=== PATIENT | female | born 1965 | race Caucasian/White ===

== ENCOUNTER 2024-05-27 19:40 | Emergency (ER) | payer MEDICARE, BC, SELFPAY ==
[2024-05-27 19:40] VITALS: BMI 36.5
[2024-05-27 19:44] VITALS: BP 189/113
[2024-05-27 20:14] LABS: % Basophils 0.5 % (0-2); % Eosinophils 3.6 % (0-6); % Immature Granulocytes 0.2 % (0-0.5); % Lymphocytes 29.7 % (20.5-51.1); % Monocytes 11.4 % (1.7-9.3); % Neutrophils 54.6 % (42.2-75.2); Absolute Eosinophils 0.2 10^3/uL (0-0.7); Absolute Lymphocytes 1.7 10^3/uL (1.2-3.4); Absolute Monocytes 0.6 10^3/uL (0.1-0.6); Absolute Neutrophils 3.1 10^3/uL (1.4-6.5); Hematocrit 39.3 % (37.0-47.0); Hemoglobin 13.3 g/dL (12.0-16.0); Mean Corp Hgb Conc. 33.8 g/dL (33.0-37.0); Mean Corpuscular Hgb 28.9 pg (27.0-31.0); Mean Corpuscular Volume 85.4 fL (81.0-99.0); Mean Platelet Volume 9.7 fL (7.4-10.4); Nucleated Red Blood Cells % 0 %; Platelet Count 224 10^3/uL (130-400); Red Cell Dist. Width 12.9 % (11.5-14.5); White Blood Cell Count 5.6 10^3/uL (4.8-10.8)
[2024-05-27 20:18] LABS: APTT 30.2 Sec (23.4-35.0)
[2024-05-27 20:24] LABS: ALT (SGPT) 49 U/L (0-35); AST (SGOT) 42 U/L (14-36); Albumin 4.8 g/dl (3.5-5.0); Alkaline Phosphatase 115 U/L (38-126); Blood Urea Nitrogen 9 mg/dl (7-17); Calcium 9.3 mg/dl (8.4-10.2); Carbon Dioxide 25 mmol/L (22-30); Chloride 105 mmol/L (98-107); Glucose 111 mg/dl (70-99); Potassium 4.1 mmol/L (3.5-5.1); Sodium 139 mmol/L (135-145); Total Bilirubin 0.5 mg/dl (0.2-1.3); Total Protein 7.2 g/dl (6.3-8.2); eGFR > 60.00
[2024-05-27 20:25] LABS: Lipase 140 U/L (23-300)
[2024-05-27 22:15] VITALS: BP 159/112
[2024-05-27 22:42] VITALS: BP 164/92
[2024-05-27 23:06] VITALS: BP 149/88
--- NOTE | 2024-05-27 23:47 | ED.GENMED ---
History of Present Illness
General
Chief Complaint: Breathing Problem
Source: patient
Exam Limitations: none
Time Seen by Provider: 05/27/24 23:04
Nursing documentation reviewed up to this point in time: agreed with
History of Present Illness
History of Present Illness:
59-year-old female past medical history of PE, stroke, hypertension hyperlipidemia presenting to the emergency department today after an episode where she had nausea vomiting yesterday felt like she aspirated and has had ongoing discomfort to the
right lung as well as some mild shortness of breath. Also has been taking for PEs for many years. Denies specific chest pain no ongoing vomiting. No fevers today.
Past History
Past History
ED Past Medical History: GERD, HTN, Hypercholesterolemia, Other (Pulmonary embolus, chronic back pain) and Other (Intracranial hemorrhage)
ED Past Surgical History: Orthopedic (R knee replacement) and Other (IVC filter); Negative Bowel resection, Brain, Cardiac or Cholecystectomy
Patient has exhibited threatening behavior?: No
Social History
Tobacco: Non-smoker
Alcohol: None
Drug: None
Personal: Partner
Living: with family
Employment: Employed
Family History
Family History: CAD (Father with AL at age 48 )
Review of Systems
Review of Systems
Allergies reviewed?: Yes
All Other Systems: ROS reviewed and negative except as documented in HPI and ROS
Phy Exam
Physical Exam
Physical Exam:
GENERAL: Alert , in no apparent distress
EYE: pupils equal and reactive
NECK: Supple, no significant adenopathy.
ENT: o/p clr, mmm.
CARDIAC: Regular rate and rhythm .
LUNGS: Very mild slight rhonchi with forced exhalation to the right lower lobe of lungs otherwise clear lungs good air movement
ABDOMEN: Soft, without focal tenderness, no r/g, no cvat
NEUROLOGICAL: Alert and oriented, no focal neuro deficits
SKIN: Warm and dry, skin intact.
MUSCULOSKELETAL: No edema, well perfused.
PSYCH: Normal and appropriate interaction.
Scores
Heart Failure Risk
Heart Failure Risk Score: Not Applicable
Course
Orders/Labs/Results
Orders:
Orders
05/27/24 19:48
CR Chest - 2 Views Urgent
Comment:
Reason For Exam: aspiration
05/27/24 19:54
Complete Blood Count/With Diff Urgent
Comprehensive Metabolic Panel Urgent
Lipase Urgent
05/27/24 19:57
PTT Urgent
05/27/24 23:47
Amoxicillin 875 mg/Clav 125 mg [Augmentin 875 mg/125 mg] 1 tablet PO NOW STA
Abnormal Lab Results
05/27/24
19:54
Monocytes % 11.4 H %
(1.7-9.3)
Glucose 111 H mg/dl
(70-99)
AST 42 H U/L
(14-36)
ALT 49 H U/L
(0-35)
05/27/24 19:54
05/27/24 19:54
Vital Signs
Initial and Last Documented VS:
Initial Vital Signs
Temp Pulse Resp BP Pulse Ox
98.2 F 91 20 189/113 98
05/27/24 19:44 05/27/24 19:44 05/27/24 19:44 05/27/24 19:44 05/27/24 19:44
Last Documented Vital Signs
Temp Pulse Resp BP Pulse Ox
98.2 F 81 12 149/88 98
05/27/24 19:44 05/27/24 23:30 05/27/24 23:30 05/27/24 23:06 05/27/24 23:30
MDM/Problems Addressed
MDM/Problems Addressed:
59-year-old female presenting with concerns of vomiting yesterday now some mild shortness of breath and funny sensation to the right back. On examination there is a small bit of rhonchi to the right lower lung region. Concern for potential very
early aspiration pneumonia though it is not very clear on chest x-ray. Plan start antibiotic otherwise patient generally well-appearing in no distress stable for outpatient follow-up return precautions given.
*Critical Care Note
Total Time (30-74mins, 75-104mins- exclusive of procedures): Not Applicable
ED Attending Note
-
Portions of this chart may have been created with voice recognition software.� Occasional wrong word or��sound alike� substitutions may have occurred due to the inherent limitations of voice recognition software.
Discharge Plan
Departure
Patient Disposition: Home (Routine Discharge)
Date of Disposition: 05/27/24
Time of Disposition: 23:49
Patient with high blood pressure during this ER visit?: No
Condition: Good
Covid-19: Not Applicable
Discharge Problem:
Aspiration pneumonia
Instructions: Shortness of Breath (Dyspnea) (DC)
Prescriptions:
New
amoxicillin-pot clavulanate 875-125 mg tablet
1 tab PO BID 7 Days Qty: 14 0RF
No Action
famotidine 40 MG tablet
40 mg PO HS
simvastatin 20 MG tablet
20 mg PO QPM
morphine 15 MG tablet extended release
15 mg PO [id number] PRN (Reason: pain mangement )
oxycodone-acetaminophen 1 EACH tablet
1 tab PO .BID@0300,1500 PRN (Reason: severe lower back pain)
Patient Comments:
12/21/19-patient lasted picked up on 12/04/19 #70
-patient required 0300 and 1500 and not to change her schedule
ramipril 5 MG capsule
5 mg PO HS
warfarin [Jantoven] 7.5 MG tablet
7.5 mg PO .[id number]
ferrous sulfate [FeroSul] 325 MG tablet
325 mg PO HS
warfarin [Jantoven] 5 MG tablet
5 mg PO .[id number]
enoxaparin 80 MG/0.8 ML syringe
80 mg SC .[id number]
Referrals:
Colin Tracey DO [Family Provider] -
Activity Restrictions/Additional Instructions:
You came to the emergency department today with concerns of possible aspiration. Please take the Augmentin twice daily for the next 7 days and follow closely with the primary care doctor. Return for any worsening, new or concerning symptoms.
Interventions
Interventions:
*Risk Screen - Suicide Last Done: 05/27/24 23:47
*General Assessment Last Done: 05/27/24 19:44
*Neglect/Abuse Screening Last Done: 05/27/24 23:47
*ED COVID-19 Vaccine History Last Done: 05/27/24 23:47
ED- Cardiac Assessment Last Done: 05/27/24 23:47
ED- Pulmonary Assessment Last Done: 05/27/24 23:47
Discharge Date and Time
Print Language: [place] CITIZEN
[2024-05-27] MEDS: AUGMENTIN 875 MG/125 MG 1 TABLET PO (23:57)
== END 2024-05-28 00:13 | disposition home or self-care (01) ==
LOC: EMR 19:40
PROVIDERS: Emergency Medicine; EMERGENCY PHYSICIAN Emergency Medicine; FAMILY PHYSICIAN Family Medicine
DX: J69.0 Pneumonitis due to inhalation of food and vomit (principal); E78.00 Pure hypercholesterolemia, unspecified; I10 Essential (primary) hypertension; Z86.73 Personal history of transient ischemic attack (TIA), and cerebral infarction without residual deficits; Z86.711 Personal history of pulmonary embolism
CPT/HCPCS: 99284; 71046; 80053; 83690; 85025; 85730

== ENCOUNTER → 2024-08-12 15:17 | Outpatient (REF) | payer MEDICARE, BC, SELFPAY | LOC: RAD 15:17 | PROVIDERS: ATTENDING PHYSICIAN Physical Medicine & Rehabilitation Pain Medicine; FAMILY PHYSICIAN Family Medicine | DX: I82.402 Acute embolism and thrombosis of unspecified deep veins of left lower extremity (principal); M79.662 Pain in left lower leg | CPT/HCPCS: 93971 ==

== ENCOUNTER 2024-08-15 05:57 | Emergency (ER) | payer MEDICARE, BC, SELFPAY ==
[2024-08-15 06:11] VITALS: BP 153/92
--- NOTE | 2024-08-15 07:15 | ED.GENMED ---
History of Present Illness
General
Chief Complaint: Swelling
Time Seen by Provider: 08/15/24 07:01
History of Present Illness
History of Present Illness:
59-year-old female with history of DVT currently on Eliquis presents for evaluation of left popliteal pain and left calf swelling for the past 3 to 4 days. She had an ultrasound 3 days ago showing no DVT and a popliteal fluid collection however she
was never given her results. Denies any chest pain or shortness of breath
Past History
Past History
ED Past Medical History: GERD, HTN, Hypercholesterolemia, Other (Pulmonary embolus, chronic back pain) and Other (Intracranial hemorrhage)
ED Past Surgical History: Orthopedic (R knee replacement) and Other (IVC filter); Negative Bowel resection, Brain, Cardiac or Cholecystectomy
Patient has exhibited threatening behavior?: No
Social History
Tobacco: Non-smoker
Alcohol: None
Drug: None
Personal: Partner
Living: with family
Employment: Employed
Family History
Family History: CAD (Father with [place] at age 48 )
Review of Systems
Review of Systems
Allergies reviewed?: Yes
All Other Systems: ROS reviewed and negative except as documented in HPI and ROS
Phy Exam
Physical Exam
Physical Exam:
GEN: Well appearing, NAD, WDWN
HEENT: Oral mucosa moist, no scleral icterus
Cardiac: Regular rate
Lung: No respiratory distress, no tachypnea
MSK: Diffuse calf swelling, calf compartments are soft x 4 on the left, mild ecchymosis to the inferior medial calf/foot minimal pain with passive stretch of the calf, left knee range of motion is normal
Skin: Good color, no pallor or jaundice, no rashes
Neuro: AO x3, moves all extremities freely
Psych: Calm, cooperative
Scores
Heart Failure Risk
Heart Failure Risk Score: Not Applicable
Course
Vital Signs
Initial and Last Documented VS:
Initial Vital Signs
Temp Pulse Resp BP Pulse Ox
98.2 F 82 16 153/92 97
08/15/24 06:11 08/15/24 06:11 08/15/24 06:11 08/15/24 06:11 08/15/24 06:11
Last Documented Vital Signs
Temp Pulse Resp BP Pulse Ox
98.2 F 82 16 153/92 97
08/15/24 06:11 08/15/24 06:11 08/15/24 06:11 08/15/24 06:11 08/15/24 07:16
Comment
Comment:
Outpatient ultrasound reviewed showing a popliteal fluid collection most likely representing a ruptured popliteal cyst, she is unable to take NSAIDs due to anticoagulant use, will refer to orthopedics as an outpatient
*Pulse Oximetry
SaO2: 97
Oxygen Mode of Delivery: Room air
Patient hypoxic: no
*Critical Care Note
Total Time (30-74mins, 75-104mins- exclusive of procedures): Not Applicable
ED Attending Note
-
Portions of this chart may have been created with voice recognition software.� Occasional wrong word or��sound alike� substitutions may have occurred due to the inherent limitations of voice recognition software.
Discharge Plan
Departure
Patient Disposition: Home (Routine Discharge)
Date of Disposition: 08/15/24
Time of Disposition: 07:15
Patient with high blood pressure during this ER visit?: Yes
Discharge Problem:
Ruptured cyst of left popliteal space
Instructions: Lorenzo's (popliteal) cyst
Prescriptions:
No Action
famotidine 40 MG tablet
40 mg PO HS
simvastatin 20 MG tablet
20 mg PO QPM
morphine 15 MG tablet extended release
15 mg PO [id number] PRN (Reason: pain mangement )
oxycodone-acetaminophen 1 EACH tablet
1 tab PO .BID@0300,1500 PRN (Reason: severe lower back pain)
Patient Comments:
12/21/19-patient lasted picked up on 12/04/19 #70
-patient required 0300 and 1500 and not to change her schedule
ramipril 5 MG capsule
5 mg PO HS
warfarin [Jantoven] 7.5 MG tablet
7.5 mg PO .[id number]
ferrous sulfate [FeroSul] 325 MG tablet
325 mg PO HS
warfarin [Jantoven] 5 MG tablet
5 mg PO .[id number]
enoxaparin 80 MG/0.8 ML syringe
80 mg SC .[id number]
amoxicillin-pot clavulanate 875-125 mg tablet
1 tab PO BID 7 Days Qty: 14 0RF
Referrals:
Colin Tracey DO [Family Provider, Family Practice]
Interventions
Interventions:
*Risk Screen - Suicide Last Done: 08/15/24 06:11
*General Assessment Last Done: 08/15/24 06:11
*Neglect/Abuse Screening Last Done: 08/15/24 06:11
*ED- Fall Risk Assessment Last Done: 08/15/24 06:11
*ED COVID-19 Vaccine History Last Done: 08/15/24 06:11
Discharge Date and Time
Print Language: PASHTO
--- NOTE | 2024-08-15 08:03 | EDRN ---
AMBROSE Victor discharged this patient. This RN did not assess or DC this patient.
== END 2024-08-15 07:20 | disposition home or self-care (01) ==
LOC: EMR 05:57
PROVIDERS: EMERGENCY PHYSICIAN Student in an Organized Health Care Education/Training Program; FAMILY PHYSICIAN Family Medicine
DX: M71.22 Synovial cyst of popliteal space [Baker], left knee (principal); E78.00 Pure hypercholesterolemia, unspecified; I10 Essential (primary) hypertension; Z86.711 Personal history of pulmonary embolism; Z86.718 Personal history of other venous thrombosis and embolism; Z79.01 Long term (current) use of anticoagulants
CPT/HCPCS: 99282

== ENCOUNTER 2024-12-05 17:58 | Emergency (ER) | payer MEDICARE, BC, SELFPAY ==
[2024-12-05 18:02] VITALS: BP 149/106
[2024-12-05 18:07] VITALS: BMI 35.4
[2024-12-05 18:18] VITALS: BP 159/82
--- NOTE | 2024-12-05 18:36 | ED.GENMED ---
History of Present Illness
General
Chief Complaint: Breathing Problem
Source: patient
Exam Limitations: none
Time Seen by Provider: 12/05/24 18:22
History of Present Illness
History of Present Illness:
See MDM
Past History
Past History
ED Past Medical History: GERD, HTN, Hypercholesterolemia, Other (Pulmonary embolus, chronic back pain) and Other (Intracranial hemorrhage)
ED Past Surgical History: Orthopedic (R knee replacement) and Other (IVC filter); Negative Bowel resection, Brain, Cardiac or Cholecystectomy
Patient has exhibited threatening behavior?: No
Social History
Tobacco: Non-smoker
Alcohol: None
Drug: None
Personal: Partner
Living: with family
Employment: Employed
Family History
Family History: CAD (Father with [place] at age 48 )
Phy Exam
Physical Exam
Physical Exam:
See MDM
Scores
Heart Failure Risk
Heart Failure Risk Score: Not Applicable
Course
Orders/Labs/Results
Orders:
Orders
12/05/24 18:06
Electrocardiogram (*1) Urgent
Reason for Study: Shortness of Breath
12/05/24 18:07
EKG- Treatment ONCE
12/05/24 18:31
CT Chest PE Study Urgent
Comment:
Reason For Exam: SOB, CP
0.9% Sodium Chloride 1000 ml [Nss] 1,000 ml IV BOLUS
Lorazepam [Ativan] 1 mg PO NOW STA
12/05/24 18:50
Complete Blood Count/With Diff Urgent
Comprehensive Metabolic Panel Urgent
NT-proBNP Urgent
PTT Urgent
Prothrombin Time Urgent
Troponin I Urgent
Abnormal Lab Results
12/05/24
18:50
Hgb 11.6 L g/dL
(12.0-16.0)
Hct 36.0 L %
(37.0-47.0)
MCHC 32.2 L g/dL
(33.0-37.0)
Glucose 105 H mg/dl
(70-99)
Alkaline Phosphatase 133 H U/L
(38-126)
12/05/24 18:50
12/05/24 18:50
Vital Signs
Initial and Last Documented VS:
Initial Vital Signs
Temp Pulse Resp BP Pulse Ox
97.5 F 102 18 149/106 98
12/05/24 18:02 12/05/24 18:02 12/05/24 18:02 12/05/24 18:02 12/05/24 18:02
Last Documented Vital Signs
Temp Pulse Resp BP Pulse Ox
97.5 F 81 15 154/86 99
12/05/24 18:02 12/05/24 20:00 12/05/24 20:00 12/05/24 20:00 12/05/24 19:22
MDM/Problems Addressed
Differential Diagnosis Includes:
Note:
CHIEF COMPLAINT(S)
Shortness of breath after walking up stairs.
HISTORY OF PRESENT ILLNESS
The patient is a 59-year-old female with a complex medical history, including previous pulmonary embolism leading to the permanent insertion of an IVC filter and a stroke. She had undergone knee replacement surgery recently. Four days
postoperatively, she experienced swelling in her left leg, and given her history of blood clots at 37, she has been on anticoagulant therapy ever since. She presented to a hospital with her leg swelling, where she was diagnosed with two deep vein
thromboses (DVTs) and was advised by her manager hotel Dr. Cowan to double her Apixaban dose for eight doses. Yesterday and today, she experienced shortness of breath after minimal exertion, which she described as worse today compared to
yesterday. Currently, she is back on her prescribed dose of Apixaban and reports less swelling in her legs. She expressed concern about whether her IVC filter might be clogged.
PAST MEDICAL AND SURGICAL HISTORY
- Pulmonary embolism with IVC filter placement
- Stroke
- Recent knee replacement surgery
CHRONIC MEDICAL CONDITIONS SIGNIFICANTLY AFFECTING CARE
Chronic conditions affecting care: Pulmonary embolism, Deep vein thrombosis, Stroke.
SOCIAL DETERMINANTS AFFECTING HEALTH
The patient conveyed anxiety about her health status.
PHYSICAL EXAM
General: Alert, no acute distress.
Skin: Warm, dry.
Head: Normocephalic, atraumatic
Neck: Appears supple, trachea midline.
Eyes, Ears, Nose, Mouth, and Throat: Moist mucous membranes
Cardiovascular: No signs of cyanosis
Respiratory: Respirations are non-labored. Lungs clear
Abdomen: Non-distended
Musculoskeletal: Left knee incision clean and intact and healing. Mild left leg edema. Distal pulses intact
Neurological: No focal neurological deficit observed.
Psychiatric: Mildly anxious
PLAN
- Computed Tomography (CT) scan to rule out embolism or clot migration through the IVC filter.
- Provide oral Lorazepam (Ativan) for anxiety management.
DIFFERENTIAL DIAGNOSIS
The Differential Diagnosis includes, in no particular order and is not limited to:
- Recurrent pulmonary embolism
- Complication of knee replacement surgery (e.g., infection, hematoma)
- Myocardial infarction
- Deep vein thrombosis extension
- Anxiety-induced hyperventilation
- Heart failure exacerbation
- Anemia
- Respiratory infection
- Medication side effects
- Low cardiac output syndrome
SUMMARY OF ENCOUNTER
The patient presented to the emergency department with dyspnea after exertion post-knee replacement and a confirmed history of DVTs. Given her current anticoagulation regimen and history of pulmonary embolism with an IVC filter, further workup with
a CT scan is planned to evaluate potential clot migration. The patient was administered oral anxiolytics for associated anxiety.
DISPOSITION
Pending further diagnostic evaluation.
EMERGENCY TREATMENTS ADMINISTERED
Oral Lorazepam was administered for anxiety.
INDEPENDENT REVIEW OF LABS AND INTERPRETATION OF TESTS
My independent review of patient history suggests a concern for thromboembolic events.
PATIENT EDUCATION AND COUNSELING
The patient was informed about the potential causes of her symptoms, including the strategy for ensuring clot prevention and management. Explanation about the purpose of a CT scan was provided to address her concerns about the potential clogging of
the IVC filter.
MEDICATION RECONCILIATION
- Continued on Apixaban.
- Oral Lorazepam provided for anxiety management.
MEDICAL DECISION MAKING
- Complexity of Data Reviewed: Chronic conditions affecting care: Pulmonary embolism, Deep vein thrombosis, Stroke. The Differential Diagnosis includes possibly recurrent PE and DVT extension.
- Data:
- Category 1: Tests and documents - CT scan ordered.
- Category 2: Independent interpretation of patient symptoms necessitating further imaging.
- Risk: Prescription medication was administered for anxiety management. Consideration of Admission/Observation: Escalation of care, including admission/observation, was considered due to the complexity and risk of the patients presenting complaint,
exam findings, and/or their underlying comorbidities, but the patient was closely monitored in the ED for the time being.
DIAGNOSIS
- Pulmonary embolism (I26.99)
- Deep vein thrombosis (I82.4Z)
- Post-surgical status of knee replacement (Z89.62)
- Anxiety disorder (F41.9)
SUMMARY OF ENCOUNTER
The patient presented to the emergency department with shortness of breath, concerned about a potential pulmonary embolism due to her prior history. A CT scan was conducted which ruled out a pulmonary embolism. The patient is clinically feeling
better and is comfortable going home.
PLAN
Reassess symptoms with a primary care doctor.
INDEPENDENT REVIEW OF LABS AND INTERPRETATION OF TESTS
My independent review of the CT scan indicates no evidence of pulmonary embolism.
PATIENT EDUCATION AND COUNSELING
The patient was informed about the negative CT scan results for pulmonary embolism and advised to follow up with her primary care doctor for further reassessment of her symptoms.
MEDICAL DECISION MAKING
-Complexity of Data Reviewed: Chronic conditions affecting care include pulmonary embolism and deep vein thrombosis.
Data:
Category 1: Tests and documents - A CT scan was conducted and independently reviewed.
Category 3: Risk: Prescription medication was prescribed; safe for outpatient management with close follow-up.
DIAGNOSIS
Dyspnea
*Pulse Oximetry
SaO2: 98
Oxygen Mode of Delivery: Room air
Patient hypoxic: no
*Critical Care Note
Total Time (30-74mins, 75-104mins- exclusive of procedures): Not Applicable
ED Attending Note
-
Portions of this chart may have been created with voice recognition software.� Occasional wrong word or��sound alike� substitutions may have occurred due to the inherent limitations of voice recognition software.
Discharge Plan
Departure
Patient Disposition: Home (Routine Discharge)
Date of Disposition: 12/05/24
Time of Disposition: 21:10
Patient with high blood pressure during this ER visit?: Yes
Discharge Problem:
Acute dyspnea
Instructions: Shortness of Breath (Dyspnea) (DC)
Prescriptions:
No Action
famotidine 40 MG tablet
40 mg PO HS
simvastatin 20 MG tablet
20 mg PO QPM
morphine 15 MG tablet extended release
15 mg PO [id number] PRN (Reason: pain mangement )
oxycodone-acetaminophen 1 EACH tablet
1 tab PO .BID@0300,1500 PRN (Reason: severe lower back pain)
Patient Comments:
12/21/19-patient lasted picked up on 12/04/19 #70
-patient required 0300 and 1500 and not to change her schedule
ramipril 5 MG capsule
5 mg PO HS
warfarin [Jantoven] 7.5 MG tablet
7.5 mg PO .[id number]
ferrous sulfate [FeroSul] 325 MG tablet
325 mg PO HS
warfarin [Jantoven] 5 MG tablet
5 mg PO .[id number]
enoxaparin 80 MG/0.8 ML syringe
80 mg SC .[id number]
amoxicillin-pot clavulanate 875-125 mg tablet
1 tab PO BID 7 Days Qty: 14 0RF
Referrals:
Colin Tracey DO [Family Provider, Family Practice]
Activity Restrictions/Additional Instructions:
Please return for any worsening symptoms.
You may return at any time if you have further concerns.
Please follow up with your doctor at the first available appointment, preferably this week.
Thank you for choosing [facility].
Interventions
Interventions:
*Risk Screen - Suicide Last Done: 12/05/24 18:02
*General Assessment Last Done: 12/05/24 18:02
*Neglect/Abuse Screening Last Done: 12/05/24 18:02
*ED- Fall Risk Assessment Last Done: 12/05/24 19:22
*ED COVID-19 Vaccine History Last Done: 12/05/24 19:22
*ED Influenza Vaccine History Last Done: 12/05/24 19:22
ED- Cardiac Assessment Last Done: 12/05/24 19:22
ED- Pulmonary Assessment Last Done: 12/05/24 19:22
Discharge Date and Time
Print Language: TANZAN[place]
[2024-12-05] MEDS: NSS 1000 IV (18:48)
[2024-12-05] MEDS: ATIVAN 1 MG PO (18:58)
[2024-12-05 18:59] LABS: Hematocrit 36.0 % (37.0-47.0); Hemoglobin 11.6 g/dL (12.0-16.0); Mean Corp Hgb Conc. 32.2 g/dL (33.0-37.0); Mean Corpuscular Volume 83.9 fL (81.0-99.0); Nucleated Red Blood Cells % 0 %; Platelet Count 313 10^3/uL (130-400); Red Cell Dist. Width 12.8 % (11.5-14.5)
[2024-12-05 19:00] VITALS: BP 167/93
[2024-12-05 19:12] LABS: APTT 33.4 Sec (23.4-35.0); INR 1.07; PT 14.2 Sec (11.4-14.6)
[2024-12-05 19:25] LABS: ALT (SGPT) 17 U/L (0-35); AST (SGOT) 21 U/L (14-36); Albumin 4.5 g/dl (3.5-5.0); Alkaline Phosphatase 133 U/L (38-126); Blood Urea Nitrogen 9 mg/dl (7-17); Calcium 9.5 mg/dl (8.4-10.2); Carbon Dioxide 26 mmol/L (22-30); Chloride 106 mmol/L (98-107); Estimated Creatinine Clearance 96 ml/min; Glucose 105 mg/dl (70-99); Potassium 3.7 mmol/L (3.5-5.1); Sodium 139 mmol/L (135-145); Total Protein 7.2 g/dl (6.3-8.2); eGFR > 60.00
[2024-12-05 19:37] LABS: Troponin I < 0.012 ng/ml
[2024-12-05 20:00] VITALS: BP 154/86
[2024-12-05 21:00] VITALS: BP 136/81
== END 2024-12-05 21:37 | disposition home or self-care (01) ==
LOC: EMR 17:58
PROVIDERS: Student in an Organized Health Care Education/Training Program; EMERGENCY PHYSICIAN Student in an Organized Health Care Education/Training Program; FAMILY PHYSICIAN Family Medicine
DX: R06.00 Dyspnea, unspecified (principal); M79.89 Other specified soft tissue disorders; I10 Essential (primary) hypertension; K21.9 Gastro-esophageal reflux disease without esophagitis; E78.00 Pure hypercholesterolemia, unspecified; F41.9 Anxiety disorder, unspecified; G89.29 Other chronic pain; M54.9 Dorsalgia, unspecified; Z98.890 Other specified postprocedural states; Z96.651 Presence of right artificial knee joint; Z86.711 Personal history of pulmonary embolism; Z86.73 Personal history of transient ischemic attack (TIA), and cerebral infarction without residual deficits; Z88.8 Allergy status to other drugs, medicaments and biological substances
CPT/HCPCS: 99285; 96360; 71275; 80053; 83880; 84484; 85025; 85610; 85730; 93005; Q9967